=== PATIENT | male | born 1970 ===

== ENCOUNTER 2024-10-06 22:32 | Emergency (ER) | payer SELFPAY ==
[2024-10-06 22:36] VITALS: BP 132/97; PULSE 122; O2SAT 95
[2024-10-06 22:48] VITALS: BP 117/77; PULSE 107; RESP 16; TEMP 36.4; O2SAT 92; BMI 27.6
[2024-10-06 22:55] VITALS: BP 117/77; PULSE 107; RESP 16; TEMP 36.4; O2SAT 92
--- NOTE | 2024-10-06 22:56 | MHC.EDTECH ---
This nanotechnology engineering technologist and manager of security assisted patient in getting undressed. Patient refused to take off his shorts, sneakers, and socks. We explained to him the rules and reassured him his belongings will be safe. Patient continue refusing. Liliane QUINONES and Talita Joyner MD were notified and spoke to patient.
--- NOTE | 2024-10-06 23:13 | ED.OVERDOSE ---
HPI - Overdose General Chief Complaint: Overdose Stated Complaint: possible overdose liquor use, narcaned Time Seen by Provider: 10/06/24 22:48 Source: patient Mode of arrival: ambulatory Limitations: no limitations History of Present Illness ED Provider: HPI Narrative: Patient said he had only alcohol was not responsive at home EMS arrived your Narcan 8 mg and patient responded back to normal said that he had some white powder which was in the drink patient has refused to give urine sample denies any substance abuse does not want to stay in the ER for further workup Related Data Allergies Allergy/AdvReac Type Severity Reaction Status Date / Time [facility] Allergy Anaphylaxis Verified 10/06/24 22:52 Review of Systems Review of Systems: Yes all other systems are reviewed and are negative [facility] Social History Social History Smoked in Last 30 Days: Yes Substance Use Type: Marijuana Do you have a plan to hurt others: No Plan Physical Exam Vital Signs: Vital Signs: Last Vital Signs Temp 97.6 F 10/06/24 22:55 Pulse 107 H 10/06/24 22:55 Resp 16 10/06/24 22:55 BP 117/77 10/06/24 22:55 Pulse Ox 92 10/06/24 22:55 O2 Del Method Room Air 10/06/24 22:55 BMI result Body Mass Index 27.6 Appearance: Alert. Oriented X3. No acute distress. etoh+ Eyes: PERRLA, No Nystagmus ENT: Pharynx normal. Oral Mucosa moist Neck: Normal inspection. Neck supple. CVS: Normal heart rate and rhythm. Pulses normal. Respiratory: No respiratory distress. Equal air entry bilateral, no wheezing/rales/rhonchi Abdomen: Soft and nontender. Bowel sounds are present, no mass palpable, no CVA tenderness Skin: Skin warm and dry. Normal skin color. Normal skin turgor. Extremities: No lower extremity edema. No calf tenderness Neuro: Oriented X 3. No motor deficit. No sensory deficit.No cerebellar signs , cranial nerves II-XII intact ambulatory in his steady gait Medical Decision Making Medical Decision Making [facility] Narrative: Patient with? Opiate abuse and alcohol use refused to give samples refused that he took any drugs but responded to Narcan saturating 100% at room air does not want to stay in the ER family's bedside will discharge patient home will give Narcan to take home Discharge Plan Discharge Clinical Impression: Accidental opiate poisoning Patient Disposition: Home, Self-Care Instructions: Opioid Use Disorder (ED) Additional Instructions: Opiate use disorder You were seen in our Emergency Department today for treatment of opiate use disorder. You may have been dosed with medication for opiate use disorder (MOUD) in the form of suboxone or methadone. You may experience feeling some withdrawal symptoms and this is normal. The? dose in the Emergency Department is a starting dose and meant to be titrated up once you follow up with a clinic. Please do not feel discouraged, it is a process. The nurse has reviewed with you where to follow up and what information to bring with you, to continue treatment. You also may have been given naloxone (narcan) to take home with you. This medication is used to potentially treat opiate overdose. If you decide you want to stop or cut down on how much you?re using, you can call or walk into our outpatient Addiction Treatment office: [facility] (M-F 9am-5p) [address] [place] [address], [address] [phone] You may have been provided with safer injection?items, please take time to take care of YOU and your health. Use new supplies whenever possible to lessen the chances of infections and other illnesses.? ?If you need more supplies, please go [facility],? [address] [place] [address] OR you can call or text to coordinate delivery of safer supplies. You were also provided a list of several treatment providers in the area.? If you experience any worsening symptoms you cannot control please return to the ED or call 911. Please follow up at your next appointment. Things to look out for are fevers, chest pain, shortness of breath, severe pain, dizziness, fainting or any other concerns.
[2024-10-06 23:21] VITALS: BP 117/77; PULSE 107; RESP 16; TEMP 36.4; O2SAT 92
== END 2024-10-07 03:43 | disposition home or self-care (01) ==
LOC: HO.ED 10-07 01:05
PROVIDERS: Emergency Provider Internal Medicine
DX: T40.601A Poisoning by unspecified narcotics, accidental (unintentional), initial encounter (principal); Y92.9 Unspecified place or not applicable; Z71.51 Drug abuse counseling and surveillance of drug abuser
CPT/HCPCS: 99282; 99284